=== PATIENT | female | born 1960 | race Caucasian/White ===

== ENCOUNTER 2017-03-28 06:29 | Emergency (ER) | payer OTHER ==
[~2017-03-28] VITALS: Ht 170.2 cm; Wt 78.0 kg
[~2017-03-28 06:29] MED LIST: FLEX10TA PO; KETO10 PO; Z.0.NO CURRENT MEDS
[2017-03-28 06:31] VITALS: BP 152/72; PULSE 88; RESP 16; TEMP 97.9; O2SAT 100
[2017-03-28] MEDS ORDERED: [UNRECOGNIZED DRUG - OTHER] PO (07:20)
--- NOTE | 2017-03-28 07:24 | PD ---
HPI Chief Complaint: Injury Time Seen by Provider: 07:24 Travel History International Travel<30 days: No Contact w/Intl Traveler<30days: No Traveled to known affect area: No History of Present Illness HPI 57-year-old female presents the emergency department with crush type injury to the left dorsal foot. 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 She now has pain, swelling, and ecchymosis to the left dorsal foot. She is able to bear weight with difficulty. She denies any other injury. She has no numbness or tingling but has decreased range of motion of the toes secondary to pain. She states no pain in the left ankle. She is allergic to penicillin. PFSH Past Medical History Cancer: No Cardiovascular Problems: No Diminished Hearing: No Endocrine: No Genitourinary: No Immune Disorder: No Musculoskeletal: No Neurologic: No Psychiatric: No Reproductive: No Respiratory: No Menopausal: Yes Past Surgical History Gynecologic Surgery: Yes () Other Surgery: Yes (NASAL SURGERY) Social History Alcohol Use: Yes (COUPLE OF TIMES A WEEK) Tobacco Use: Yes (1 PPD) Substance Use: No Allergies-Medications (Allergen,Severity, Reaction): Coded Allergies: Penicillin (Verified Allergy, Unknown, 03/28/17) Reported Meds & Prescriptions Reported Meds & Active Scripts Active Ibuprofen 600 Mg Tab 600 Mg PO Q6H PRN Reported [backack max] 5 Mg PO DIRECTED PRN Review of Systems Except as stated in HPI: all other systems reviewed are Neg General / Constitutional: No: Fever Eyes: No: Visual changes HENT: No: Headaches Cardiovascular: No: Chest Pain or Discomfort Respiratory: No: Shortness of Breath Gastrointestinal: No: Abdominal Pain Genitourinary: No: Dysuria Musculoskeletal: Positive: Arthralgias, Limited ROM, Pain (see history present illness.) Skin: No Rash Neurologic: No: Weakness Psychiatric: No: Depression Endocrine: No: Polydipsia Hematologic/Lymphatic: No: Easy Bruising Physical Exam Narrative GENERAL: Patient appears in moderate distress. SKIN: Warm and dry. Normal color. Normal turgor. Patient has ecchymosis and swelling over the dorsal left foot. No abrasions or open wounds. HEAD: Atraumatic. Normocephalic. EYES: Pupils equal and round. No scleral icterus. No injection or drainage. ENT: No nasal bleeding or discharge. Mucous membranes pink and moist. NECK: Trachea midline. Supple and nontender. CARDIOVASCULAR: Regular rate and rhythm. RESPIRATORY: No accessory muscle use. Clear to auscultation. Breath sounds equal bilaterally. MUSCULOSKELETAL: Extremities without clubbing, cyanosis, or edema. No obvious deformities. Patient has pain and tenderness with palpation along the left lateral dorsal foot with localized swelling and ecchymosis. NEUROLOGICAL: Awake and alert. No obvious cranial nerve deficits. Motor grossly within normal limits. Five out of 5 muscle strength in the arms and legs. Normal speech. PSYCHIATRIC: Appropriate mood and affect; insight and judgment normal. Data Data Last Documented VS Vital Signs Date Time Temp Pulse Resp B/P Pulse Ox O2 Delivery O2 Flow Rate FiO2 03/28/17 06:31 97.9 88 16 152/72 100 Room Air Orders Foot, Complete ([id number]) (03/28/17 07:25) Ice/Cold Pack (03/28/17 07:25) Crutches (03/28/17 08:10) Splint Or Brace Apply/Monitor (03/28/17 08:10) MDM Medical Decision Making Medical Screen Exam Complete: Yes Emergency Medical Condition: Yes Differential Diagnosis Contusion. Depression injury. Possible fracture. Narrative Course Patient's medically stable at time of exam. X-rays of the left foot are obtained. Ice pack is placed on the area. X-ray shows no acute fracture or dislocation. Per radiologist. Patient is placed in a postop shoe and crutches. She will be given ibuprofen 600 mg 4 times a day #40. Patient can take Tylenol as needed for pain. She is to use the postop shoe and crutches as needed until better. Diagnosis Primary Impression: Contusion of left foot, initial encounter Referrals: Primary Care Physician Patient Instructions: Crush Injury (ED), Crutch Instructions (ED), General Instructions Departure Forms: Work Release Enter return to work date: Apr 01, 2017 Additional Instructions: X-ray shows no acute fracture or dislocation. Per radiologist. Patient is placed in a postop shoe and crutches. She will be given ibuprofen 600 mg 4 times a day #40. Patient can take Tylenol as needed for pain. She is to use the postop shoe and crutches as needed until better. Med/Other Pt SpecificInfo: Prescription(s) given Scripts Ibuprofen 600 Mg [id number] Mg PO Q6H PRN (Pain/Inflammation) #40 TAB Prov:Luis Antonio Linares MD 03/28/17 Disposition: 01 DISCHARGE HOME Condition: Stable Jose Manuel Steven Mar 28, 2017 07:24
[2017-03-28] MEDS ORDERED: IBUP-232 PO (08:12)
--- NOTE | 2017-03-28 08:23 | RADRPT ---
EXAM DATE/TIME: 03/28/2017 07:46 [facility] COMPARISON: No previous studies available for comparison. INDICATIONS : Left foot pain, fall. MEDICAL HISTORY : None. SURGICAL HISTORY : None. ENCOUNTER: Initial ACUITY: 2 days PAIN SCORE: 10/10 LOCATION: Left lateral foot FINDINGS: Three view examination of the left foot demonstrates no soft tissue swelling, dislocation, or fractur e. The tarsal bones appear intact. The interphalangeal and metatarsophalangeal joints are intact. The calcaneus is intact. Bony mineralization is normal. CONCLUSION: 1. No acute fracture or dislocation. Arthur Sultana MD on March 28, 2017 at 8:20 Board Certified Radiologist. This report was verified electronically.
== END 2017-03-28 08:43 | disposition home or self-care (01) ==
LOC: NEPK 06:29
DX: S90.32XA Contusion of left foot, initial encounter (principal); W23.0XXA Caught, crushed, jammed, or pinched between moving objects, initial encounter; Y93.89 Activity, other specified
CPT/HCPCS: 73630; 99283; E0113; L3260